=== PATIENT | male | born 2005 | race Caucasian/White ===

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

== ENCOUNTER 2024-03-18 21:23 | Emergency (ER) | payer OTHER ==
[~2024-03-18] VITALS: Ht 180.3 cm; Wt 85.7 kg
[2024-03-18 21:28] VITALS: BP 144/79; PULSE 62; RESP 16; TEMP 98.4; O2SAT 97
[2024-03-18] MEDS: KETOROLAC 60 MG/2 ML VIAL IM ONE (22:02)
[2024-03-18 23:57] LABS: FLU A ANTIGEN negative (NEGATIVE); FLU B ANTIGEN NEGATIVE (NEGATIVE)
[2024-03-19] MEDS ORDERED: ACET-8905 PO (00:37)
[2024-03-19] MEDS ORDERED: IBUP-2213 PO (00:37)
[2024-03-19] MEDS ORDERED: ONDA8TAB87 PO (00:37)
[2024-03-19 00:47] VITALS: BP 110/63; PULSE 74; RESP 16; TEMP 98.4; O2SAT 97
== END 2024-03-19 00:47 | disposition home or self-care (01) ==
LOC: MED 21:23
DX: R51.9 Headache, unspecified (principal); R11.2 Nausea with vomiting, unspecified; R42 Dizziness and giddiness; Z20.822 Contact with and (suspected) exposure to COVID-19; H53.8 Other visual disturbances; F12.90 Cannabis use, unspecified, uncomplicated
CPT/HCPCS: 70450; 87426; 87804; 96372; 99285; J1885